=== PATIENT | female | born 1980 | race Caucasian/White ===

== ENCOUNTER 2018-09-15 14:40 | Emergency (ER) | payer MEDICARE, MEDICAID ==
[~2018-09-15] VITALS: Ht 162.6 cm; Wt 60.0 kg
[2018-09-15] MEDS ORDERED: LORAZEPAM 1MG TABLET PO ONE (15:00)
[2018-09-15] MEDS ORDERED: OLANZAPINE 5MG TABLET ODT PO ONE (15:00)
[2018-09-15 15:44] LABS: CHLORIDE 107 mEq/L (98-107)
[2018-09-15 15:48] LABS: BASOPHILS % 0.6 % (0.0-2.0); EOSINOPHILS % 0.5 % (0.0-5.0); HEMATOCRIT. 37.3 % (36.0-48.0); HEMOGLOBIN. 12.9 g/dL (12.0-16.0); LYMPHOCYTES % 27.6 % (20.0-50.0); MEAN CORPUSCULAR HEMOGLOBIN 27.4 pg (28.0-32.0); MEAN CORPUSCULAR VOLUME 79.2 fL (81.0-99.0); MEAN PLATELET VOLUME 5.9 fl (7.4-10.4); MONOCYTES % 8.4 % (2.0-8.0); NEUTROPHILS % 62.9 % (40.0-76.0); PLATELET 295 x1000/uL (130-400); RED BLOOD CELL COUNT 4.71 mill/uL (4.2-5.4); RED CELL DISTRIBUTION WIDTH 14.1 % (11.6-14.6)
[2018-09-15 15:49] LABS: ETHANOL BLOOD < 10 mg/dL
[2018-09-15 15:55] LABS: HCG SCREEN NEGATIVE
[2018-09-15 20:53] LABS: *AMPHETAMINES SCREEN URINE NEGATIVE (NEGATIVE)
[2018-09-15 20:54] LABS: *BARBITURATES SCREEN URINE NEGATIVE (NEGATIVE); *BENZODIAZEPINES SCREEN URINE NEGATIVE (NEGATIVE); *COCAINE SCREEN URINE NEGATIVE (NEGATIVE); METHADONE URINE SCREEN NEGATIVE (NEGATIVE); OPIATES URINE SCREEN NEGATIVE (NEGATIVE); PHENCYCLIDINE URINE SCREEN NEGATIVE (NEGATIVE)
[2018-09-15 21:02] LABS: CANNABINOID URINE SCREEN PRESUMTIVE POSITIVE (NEGATIVE)
[2018-09-16 11:20] VITALS: BP 145/82
== END 2018-09-16 12:02 | disposition home or self-care (01) ==
LOC: ER 14:40
DX: R45.851 Suicidal ideations (principal); F91.8 Other conduct disorders; Z63.79 Other stressful life events affecting family and household; F12.90 Cannabis use, unspecified, uncomplicated; Z78.1 Physical restraint status
CPT/HCPCS: 36415; 80048; 80305; 80307; 80320; 80329; 81025; 84703; 99284; G0480

== ENCOUNTER 2018-09-16 19:34 | Emergency (ER) | payer MEDICARE, MEDICAID ==
[~2018-09-16] VITALS: Ht 162.6 cm; Wt 87.0 kg
[2018-09-16] MEDS ORDERED: HALOPERIDOL LACTATE 5MG/ML VIAL IM ONE (21:45)
[2018-09-16] MEDS: LORAZEPAM 2MG/ML CPJ IM PRN (21:59)
[2018-09-16 22:13] LABS: BASOPHILS % 0.7 % (0.0-2.0); EOSINOPHILS % 1.2 % (0.0-5.0); HEMATOCRIT. 35.3 % (36.0-48.0); HEMOGLOBIN. 12.4 g/dL (12.0-16.0); LYMPHOCYTES % 40.2 % (20.0-50.0); MEAN CORPUSCULAR HEMOGLOBIN 27.7 pg (28.0-32.0); MEAN CORPUSCULAR VOLUME 78.9 fL (81.0-99.0); MEAN PLATELET VOLUME 5.7 fl (7.4-10.4); MONOCYTES % 8.1 % (2.0-8.0); NEUTROPHILS % 49.8 % (40.0-76.0); PLATELET 277 x1000/uL (130-400); RED BLOOD CELL COUNT 4.47 mill/uL (4.2-5.4); RED CELL DISTRIBUTION WIDTH 14.3 % (11.6-14.6)
[2018-09-16 22:35] LABS: CLARITY URINE CLOUDY (CLEAR); COLOR URINE DARK YELLOW (YELLOW); KETONES URINE NEGATIVE (NEGATIVE); LEUKOCYTE ESTERASE URINE NEGATIVE (NEGATIVE); NITRITE URINE NEGATIVE (NEGATIVE); OCCULT BLOOD URINE NEGATIVE (NEGATIVE); PROTEIN URINE NEGATIVE (NEGATIVE); SPECIFIC GRAVITY URINE 1.031 (1.005-1.030)
[2018-09-16 22:48] LABS: CHLORIDE 110 mEq/L (98-107)
[2018-09-16 22:51] LABS: HCG SCREEN NEGATIVE
[2018-09-16 22:53] LABS: ETHANOL BLOOD < 10 mg/dL
[2018-09-16 23:50] LABS: *BENZODIAZEPINES SCREEN URINE NEGATIVE (NEGATIVE)
[2018-09-16 23:51] LABS: *AMPHETAMINES SCREEN URINE NEGATIVE (NEGATIVE); *COCAINE SCREEN URINE NEGATIVE (NEGATIVE); CANNABINOID URINE SCREEN NEGATIVE (NEGATIVE); METHADONE URINE SCREEN NEGATIVE (NEGATIVE); OPIATES URINE SCREEN NEGATIVE (NEGATIVE); PHENCYCLIDINE URINE SCREEN NEGATIVE (NEGATIVE)
[2018-09-16 23:52] LABS: *BARBITURATES SCREEN URINE NEGATIVE (NEGATIVE)
[2018-09-17] MEDS ORDERED: NICOTINE 14MG PATCH TD ONE (08:00)
[2018-09-17] MEDS: LORAZEPAM 2MG/ML CPJ IM PRN ×2 (13:12→19:43)
[2018-09-17] MEDS ORDERED: ACETAMINOPHEN 325MG TABLET PO ONE (16:00)
[2018-09-17] MEDS ORDERED: OLANZAPINE 5MG TABLET ODT PO ONE (21:00)
[2018-09-17] MEDS ORDERED: DIVALPROEX SODIUM 250MG ER TABLET PO ONE (21:00)
[2018-09-18] MEDS ORDERED: DIVALPROEX SODIUM 250MG ER TABLET PO ONE (09:15)
[2018-09-18] MEDS: LORAZEPAM 2MG/ML CPJ IM PRN ×2 (10:23→22:57)
[2018-09-18] MEDS ORDERED: ZIPRASIDONE MESYLATE 20MG/VIAL IM ONE ×4 (10:45→15:45)
[2018-09-18] MEDS ORDERED: DIPHENHYDRAMINE 50MG/ML VIAL IM ONE (14:45)
[2018-09-18] MEDS ORDERED: LORAZEPAM 2MG/ML CPJ IM ONE (14:45)
[2018-09-18] MEDS ORDERED: OLANZAPINE 10MG TABLET PO NR (16:09)
[2018-09-18] MEDS ORDERED: DIVALPROEX SODIUM 500MG ER TABLET PO NR (16:15)
[2018-09-18] MEDS ORDERED: OLANZAPINE 5MG TABLET PO ONE (20:45)
[2018-09-18] MEDS ORDERED: LORAZEPAM 1MG TABLET PO ONE (20:45)
[2018-09-19] MEDS ORDERED: NICOTINE 21MG PATCH TD ONE (01:00)
[2018-09-19] MEDS ORDERED: DIVALPROEX SODIUM 500MG ER TABLET PO ONE (10:15)
[2018-09-19] MEDS ORDERED: DIVALPROEX SODIUM 500MG ER TABLET PO SCH (10:45)
[2018-09-19] MEDS ORDERED: LORAZEPAM 1MG TABLET PO ONE (15:15)
[2018-09-19 21:24] VITALS: BP 122/87
== END 2018-09-19 21:00 ==
LOC: ER 19:34
DX: R44.3 Hallucinations, unspecified (principal); R45.851 Suicidal ideations; F17.200 Nicotine dependence, unspecified, uncomplicated; F12.10 Cannabis abuse, uncomplicated; Z98.51 Tubal ligation status
CPT/HCPCS: 36415; 80053; 80305; 80307; 80320; 80329; 81003; 81025; 84703; 85025; 96372; 99284; J1200; J1630; J2060; J3486; G0480